=== PATIENT | female | born 1935 | race Caucasian/White ===

== ENCOUNTER 2017-02-07 08:50 | Emergency (ER) | payer OTHER, BC ==
[2017-02-07] MEDS ORDERED: ONDANSETRON *ODT* 4 MG TABLET ONE (08:59)
[2017-02-07] MEDS ORDERED: ONDANSETRON *ODT* 4 MG TABLET SL ONE (09:02)
[2017-02-07] MEDS ORDERED: SODIUM CHLORIDE 1,000 ML IV STA (09:03)
[2017-02-07 09:05] VITALS: TEMP 97.4; BMI 30.7
[2017-02-07] MEDS ORDERED: ONDANSETRON 4 MG/2 ML VIAL ONE ×2 (09:22→09:44)
--- NOTE | 2017-02-07 09:31 | PDOC ---
History of Present Illness - General Chief Complaint: Lightheaded Stated Complaint: NAUSEAU/VOMITING Time Seen by Provider: 02/07/17 08:54 History Source: Patient Exam Limitations: No Limitations - History of Present Illness Travel History: No Initial Comments: 02/07/17 09:42 82-year-old female presents to the ED with sudden onset of lightheadedness upon awakening this morning complaining that she felt dizzy without visual changes, headache, or weakness. Patient states shortly thereafter she started feeling nauseous and started to vomit. Patient also states for the past hour has had the urge to defecate and feels as if she is going to have diarrhea. Patient denies recent travel, recent illness but does state was visiting her son in the hospital here for the past week spending most of her days here and concerned with his previous roommate of his that was moved out secondary to a communicable disease. Patient states mild generalized abdominal cramping but denies fever, chills, headache chest pain, cough, shortness of breath, cheat recent change in medications, recent travel, recent illness. Patient denies urinary or bowel complaints. Timing/Duration: reports: constant Quality: reports: moderate Alleviating Factors: improves with: Vomiting Past History - Past Medical History Allergies/Adverse Reactions: Allergies Allergy/AdvReac Type Severity Reaction Status Date / Time No Known Allergies Allergy Verified 02/07/17 08:54 Home Medications: Ambulatory Orders Levothyroxine [Synthroid -] 100 mcg PO DAILY 02/06/14 Ranitidine [Zantac -] 150 mg PO DAILY 08/07/15 Aspirin [ASA -] 81 mg PO DAILY 02/07/17 Ondansetron HCl [Zofran] 4 mg PO TID PRN #12 tablet 02/07/17 Anemia: No Asthma: No Cancer: No Cardiac Disorders: No CVA: No COPD: No CHF: No Dementia: No Diabetes: No GI Disorders: Yes (GERD.) Disorders: No HTN: No Hypercholesterolemia: No Liver Disease: No Suicide Attempt (Hx): No Seizures: No Thyroid Disease: Yes (HYPO.) - Surgical History Abdominal Surgery: Yes (HERNIA.) Appendectomy: Yes Cardiac Surgery: No Cholecystectomy: Yes Lung Surgery: No Neurologic Surgery: No - Psycho/Social/Smoking Cessation Hx Anxiety: No Suicidal Ideation: No Smoking History: Never smoked Have you smoked in the past 12 months: No Hx Alcohol Use: No Drug/Substance Use Hx: No Substance Use Type: None Hx Substance Use Treatment: No Patient Lives Alone: No Abd/GI Specific PMHX - Complaint Specific PMHX GERD: Yes Review of Systems - Review of Systems Able to Perform ROS?: Yes Constitutional: Yes: Weakness HEENTM: No: Symptoms Reported Respiratory: No: Symptoms reported Cardiac (ROS): Yes: Lightheadedness. No: Chest Pain ABD/GI: Yes: Diarrhea, Nausea, Vomiting, Abdominal cramping : No: Symptoms Reported Musculoskeletal: No: Symptoms Reported Integumentary: No: Symptoms Reported Neurological: Yes: Dizziness Endocrine: No: Symptoms Reported Hematologic/Lymphatic: No: Symptoms Reported *Physical Exam - Vital Signs Last Vital Signs Temp Pulse Resp BP Pulse Ox 97.4 F L 64 18 117/75 98 02/07/17 08:55 02/07/17 08:55 02/07/17 08:55 02/07/17 08:55 02/07/17 08:55 - Physical Exam General Appearance: Yes: Nourished, Appropriately Dressed. No: Apparent Distress HEENT: positive: EOMI, MIREYA, Pharynx Normal. negative: Pale Conjunctivae Neck: positive: Normal Thyroid, Supple Respiratory/Chest: positive: Lungs Clear, Normal Breath Sounds. negative: Respiratory Distress, Accessory Muscle Use Cardiovascular: positive: Regular Rhythm, Regular Rate. negative: Murmur Gastrointestinal/Abdominal: positive: Normal Bowel Sounds, Soft. negative: Distended, Tenderness Musculoskeletal: negative: CVA Tenderness Extremity: positive: Normal Capillary Refill Integumentary: positive: Normal Color, Warm, Moist Neurologic: positive: Normal Mood/Affect, Motor Strength 5/5 Heart Score/ECG Review - History History: Slightly suspicious - Electrocardiogram EKG: Normal - Age Age: >/= 65 - Risk Factors Based on the list above the patient has:: No risk factors known - Troponin Troponin: </= normal limit - Score Heart Score - Total: 2 - ECG Intrepretation Rhythm: Regular Rhythm (Rate 65. Normal sinus rhythm. QTC 476 ms. Intervals are regular. No acute findings.) ED Treatment Course - LABORATORY CBC & Chemistry Diagram: 02/07/17 09:25 02/07/17 09:25 - RADIOLOGY Radiology Studies Ordered: Category Date Time Status CHEST X-RAY PORTABLE* [RAD] Stat Radiology 02/07/17 09:03 Ordered Medical Decision Making - Medical Decision Making 02/07/17 09:26 Patient here with complaints of nausea vomiting lightheadedness and feeling to constantly move her bowels upon awakening this morning. Patient arrives with active vomiting. Vital signs stable. Patient ordered for cardiac workup, fluids, antiemetics, and will consider disposition once results are reviewed. Patient does state has been in the hospital for the past week visiting her son and unsure if she picked up something secondary while being here. 02/07/17 11:05 Laboratory Tests 02/07/17 02/07/17 09:25 09:25 WBC 7.3 Hgb 13.5 D Hct 39.5 D Neutrophils % 68.1 Sodium 143 Potassium 3.8 Chloride 109 H Carbon Dioxide 23 Anion Gap 11 BUN 10 D Creatinine 0.9 Creat Clearance w eGFR > 60 Random Glucose 116 H D Calcium 8.9 Magnesium 2.2 D Total Bilirubin 0.5 AST 21 D ALT 22 D Alkaline Phosphatase 73 Creatine Kinase 87 Troponin I < 0.02 Total Protein 6.4 Albumin 3.4 D Lipase 128 Urine analysis pending. Patient states lightheadedness has resolved along with the nausea but states feels cold which is likely related to the IV fluids but will revitalize patient. 02/07/17 13:47 Laboratory Tests 02/07/17 13:09 Urine Ketones Negative Urine Nitrite Negative Ur Leukocyte Esterase Negative 02/07/17 13:57 Patient sitting upright and eating crackers along with apple juice. If patient can tolerate will discharge home with Zofran. 02/07/17 14:56 Patient tolerated by mouth challenge and repeat vital stable. Patient remains asymptomatic and will be discharged home with Zofran and told to rest along with small frequent sips of fluids. *DC/Admit/Observation/Transfer Diagnosis at time of Disposition: Nausea, vomiting, and diarrhea - Discharge Dispostion Disposition: HOME Condition at time of disposition: Improved - Prescriptions Prescriptions: Ondansetron HCl [Zofran] 4 mg PO TID PRN #12 tablet PRN Reason: Nausea And/Or Vomiting - Referrals Referrals: Damien Hector MD [Primary Care Provider] - - Patient Instructions Printed Discharge Instructions: DI for Viral Syndrome Additional Instructions: I recommend that you rest. Take Zofran as needed for nausea. Eat small bland food and drink frequent sips of fluids for the next 2 days.
[2017-02-07 09:38] LABS: BASOPHIL 0.7 % (0-2.0); MCH 31.6 pg (25.7-33.7); MCHC 34.2 g/dl (32.0-36.0); MEAN CELL VOLUME 92.6 fl (80-96); MEAN PLT VOLUME 7.7 fl (7.5-11.1); NEUTROPHILS 68.1 % (42.8-82.8); PLATELET COUNT 196 K/MM3 (134-434); RDW 13.8 % (11.6-15.6); WHITE BLOOD COUNT 7.3 K/mm3 (4.0-10.0)
[2017-02-07] MEDS ORDERED: MECLIZINE HCL 25 MG TABLET (FP) PO ONE (09:42)
[2017-02-07] MEDS ORDERED: ONDANSETRON 4 MG/2 ML VIAL IVPUSH ONE (09:42)
[2017-02-07] MEDS ORDERED: MECLIZINE HCL 25 MG TABLET (FP) ONE (09:44)
[2017-02-07 10:04] LABS: ALBUMIN 3.4 g/dl (3.4-5.0); ANION GAP 11 (8-16); BILIRUBIN,TOTAL 0.5 mg/dL (0.2-1.0); CALCIUM 8.9 mg/dL (8.5-10.1); CO2 23 mmol/L (21-32); CREATININE 0.9 mg/dL (0.55-1.02); GLUCOSE,RANDOM 116 mg/dL (74-106); MAGNESIUM 2.2 mg/dL (1.8-2.4); SGOT/AST 21 U/L (15-37); SGPT/ALT 22 U/L (12-78); TOT PROT 6.4 g/dl (6.4-8.2)
[2017-02-07 10:07] LABS: ALK PHOS 73 U/L (45-117); TROPONIN I < 0.02 ng/ml (0.00-0.05)
[2017-02-07 13:17] LABS: URINE APPEARANCE CLEAR; URINE BILIRUBIN NEGATIVE (NEGATIVE); URINE BLOOD NEGATIVE (NEGATIVE); URINE COLOR COLORLESS; URINE GLUCOSE (UA) NEGATIVE (NEGATIVE); URINE KETONE NEGATIVE (NEGATIVE); URINE LEUK ESTERASE NEGATIVE (NEGATIVE); URINE NITRITE NEGATIVE (NEGATIVE); URINE PROTEIN NEGATIVE (NEGATIVE); URINE UROBILINOGEN NEGATIVE E.U./dl (0.2-1.0)
--- NOTE | 2017-02-07 14:02 | PDOC ---
*Physical Exam - Vital Signs Last Vital Signs Temp Pulse Resp BP Pulse Ox 97.4 F L 58 L 16 123/68 99 02/07/17 08:55 02/07/17 11:11 02/07/17 11:11 02/07/17 11:11 02/07/17 11:11 ED Treatment Course - LABORATORY CBC & Chemistry Diagram: 02/07/17 09:25 02/07/17 09:25 - ADDITIONAL ORDERS Additional order review: Laboratory Results 02/07/17 02/07/17 13:09 09:25 Sodium 143 Potassium 3.8 Chloride 109 H Carbon Dioxide 23 Anion Gap 11 BUN 10 D Creatinine 0.9 Creat Clearance w eGFR > 60 Random Glucose 116 H D Calcium 8.9 Magnesium 2.2 D Total Bilirubin 0.5 AST 21 D ALT 22 D Alkaline Phosphatase 73 Creatine Kinase 87 Troponin I < 0.02 Total Protein 6.4 Albumin 3.4 D Lipase 128 Urine Color Colorless Urine Appearance Clear Urine pH 8.0 D Ur Specific [place] 1.006 Urine Protein Negative Urine Glucose (UA) Negative Urine Ketones Negative Urine Blood Negative Urine Nitrite Negative Urine Bilirubin Negative Urine Urobilinogen Negative Ur Leukocyte Esterase Negative 02/07/17 09:25 RBC 4.26 MCV 92.6 MCHC 34.2 RDW 13.8 MPV 7.7 D Neutrophils % 68.1 Lymphocytes % 21.1 D Monocytes % 6.1 Eosinophils % 4.0 D Basophils % 0.7 - Medications Given in the ED: ED Medications Discontinued Medications Generic Name Dose Route Start Last Admin Trade Name Freq PRN Reason Stop Dose Admin Sodium Chloride 1,000 mls @ 1,000 mls/hr 02/07/17 09:03 02/07/17 09:25 Normal Saline - IV 02/07/17 10:02 1,000 mls/hr ASDIR STA Administration Meclizine HCl 25 mg 02/07/17 09:42 02/07/17 09:48 Antivert - PO 02/07/17 09:43 25 mg ONCE ONE Administration Ondansetron HCl 4 mg 02/07/17 09:02 02/07/17 09:25 Zofran Odt - SL 02/07/17 09:03 4 mg ONCE ONE Administration Ondansetron HCl 4 mg 02/07/17 09:42 02/07/17 09:48 Zofran Injection IVPUSH 02/07/17 09:43 4 mg ONCE ONE Administration Medical Decision Making - Medical Decision Making 02/07/17 14:02 Pt seen by Midlevel Provider under my direct supervision Ancillary studies reviewed I agree with plan as outlined by Midlevel Provider *DC/Admit/Observation/Transfer Diagnosis at time of Disposition: Nausea vomiting and diarrhea - Discharge Dispostion Disposition: HOME Condition at time of disposition: Improved - Prescriptions Prescriptions: Ondansetron HCl [Zofran] 4 mg PO TID PRN #12 tablet PRN Reason: Nausea And/Or Vomiting - Referrals Referrals: Damien Hector MD [Primary Care Provider] - - Patient Instructions Printed Discharge Instructions: DI for Viral Syndrome Additional Instructions: I recommend that you rest. Take Zofran as needed for nausea. Eat small bland food and drink frequent sips of fluids for the next 2 days.
[2017-02-07 15:10] VITALS: BP 129/66; PULSE 65
--- NOTE | 2017-02-07 22:55 | EKG ---
Test Reason : Blood Pressure : / mmHG Vent. Rate : 065 BPM Atrial Rate : 065 BPM P-R Int : 150 ms QRS Dur : 086 ms QT Int : 458 ms P-R-T Axes : 048 016 028 degrees QTc Int : 476 ms NORMAL SINUS RHYTHM LOW VOLTAGE QRS BORDERLINE ECG WHEN COMPARED WITH ECG OF 07-NOV-2014 08:59, NO SIGNIFICANT CHANGE WAS FOUND Confirmed by BANDAR ANNE MD ([id number]) on 02/07/2017 10:54:45 PM Referred By: Confirmed By:BANDAR ANNE MD
== END 2017-02-07 15:51 | disposition home or self-care (01) ==
LOC: JER 08:50 → SUPCPDRO 08:50 → JER 15:51
PROC: 3E0337Z Introduction of Electrolytic and Water Balance Substance into Peripheral Vein, Percutaneous Approach (ICD-10-PCS; principal; 2017-02-07)
PROC: 3E033GC Introduction of Other Therapeutic Substance into Peripheral Vein, Percutaneous Approach (ICD-10-PCS; 2017-02-07)
DX: B34.9 Viral infection, unspecified (principal); E03.9 Hypothyroidism, unspecified; K21.9 Gastro-esophageal reflux disease without esophagitis
CPT/HCPCS: 36415; 71010-TC; 80053; 81003; 82550; 83690; 83735; 84484; 85025; 87086; 93005; 93010; 96361; 96374; 99283-25

== ENCOUNTER 2020-06-30 12:47 | Inpatient (IN) | payer OTHER, BC ==
[2020-06-30 12:54] VITALS: BMI 33.2
--- NOTE | 2020-06-30 13:06 | PDOC ---
History of Present Illness - General Chief Complaint: Nausea Stated Complaint: Nausea/Vomiting Time Seen by Provider: 06/30/20 13:06 - History of Present Illness Initial Comments: 06/30/20 13:07 Patient is a 85 y.o female with h/o DVT, hypothyroidism, uterine prolapse repair and appendectomy who BIBA from home to ER with nausea. She wasn't feeling well this yesterday stated she had a stressful day. This morning, she felt light headed, change of vision, nausea. Denies vomiting, chest pain, abdominal pain, legs swelling, SOB , dysuria, increased frequency, falling, trauma, recent sick contact, heart palpitation. EMS: put an IV on her right arm, connected with normal saline. Gave her antiemesis med. EKG: showed normal sinus rhythm at 64 vent rate. PCP is Damien Hector MD Rod Piler is Cherelle Hill MD. PMHX: as in HPI PSHX: see below Meds: synthroid, aspirin Allergies: none Tob: none Etoh: none Rec drugs: none ROS GENERAL/CONSTITUTIONAL: No fever or chills. No weakness. HEAD, EYES, EARS, NOSE AND THROAT: no change in vision. No ear pain or discharge. No sore throat. CARDIOVASCULAR: No chest pain or shortness of breath RESPIRATORY: No cough, wheezing, or hemoptysis. GASTROINTESTINAL: + nausea, no vomiting, diarrhea or constipation. GENITOURINARY: No dysuria, frequency, or change in urination. MUSCULOSKELETAL: No joint or muscle swelling or pain. No neck or back pain. SKIN: No rash NEUROLOGIC: No headache, + lightheadness, no loss of consciousness, or change in strength/sensation. ENDOCRINE: No increased thirst. No abnormal weight change HEMATOLOGIC/LYMPHATIC: No anemia, easy bleeding, or history of blood clots. ALLERGIC/IMMUNOLOGIC: No hives or skin allergy. PE GENERAL: Awake, alert, and fully oriented, in no acute distress HEAD: No signs of trauma, normocephalic, atraumatic EYES: PERRLA, EOMI, sclera anicteric, conjunctiva clear ENT: Auricles normal inspection, hearing grossly normal, nares patent, oropharynx clear without exudates. Moist mucosa NECK: Normal ROM, supple, no lymphadenopathy, JVD, or masses LUNGS: No distress, speaks full sentences, clear to auscultation bilaterally HEART: Regular rate and rhythm, normal S1 and S2, no murmurs, rubs or gallops, peripheral pulses normal and equal bilaterally. ABDOMEN: Soft, nontender, normoactive bowel sounds. No guarding, no rebound. No masses EXTREMITIES : Normal inspection, Normal range of motion, no pitting edema. No calves tenderness. NEUROLOGICAL: Cranial nerves II through XII grossly intact. Normal speech, no focal sensorimotor deficits SKIN: Warm, Dry, normal turgor, no rashes or lesions noted 06/30/20 16:52 Past History - Medical History Allergies/Adverse Reactions: Allergies Allergy/AdvReac Type Severity Reaction Status Date / Time No Known Allergies Allergy Verified 06/30/20 12:55 Home Medications: Ambulatory Orders Levothyroxine [Synthroid -] 75 mcg PO DAILY 02/06/14 Aspirin [ASA -] 81 mg PO DAILY 02/07/17 Atorvastatin Ca [Lipitor] 20 mg PO HS 06/30/20 Lansoprazole [Prevacid] 30 mg PO DAILY 06/30/20 Anemia: No Asthma: No Cancer: No Cardiac Disorders: No CVA: No COPD: No CHF: No Dementia: No Diabetes: No GI Disorders: Yes (GERD.) Disorders: No HTN: No Hypercholesterolemia: No Liver Disease: No Seizures: No Thyroid Disease: Yes (HYPO.) - Surgical History Abdominal Surgery: Yes (HERNIA.) Appendectomy: Yes Cardiac Surgery: No Cholecystectomy: Yes Lung Surgery: No Neurologic Surgery: No - Reproductive History Is Patient Now?: No - Psycho-Social/Smoking History Smoking History: Unknown if ever smoked Have you smoked in the past 12 months: No *Physical Exam - Vital Signs Last Vital Signs Temp Pulse Resp BP Pulse Ox 97.5 F L 65 16 127/84 100 06/30/20 12:51 06/30/20 12:51 06/30/20 12:51 06/30/20 12:51 06/30/20 12:51 ED Treatment Course - LABORATORY CBC & Chemistry Diagram: 06/30/20 13:57 06/30/20 13:57 Medical Decision Making - Medical Decision Making 06/30/20 16:52 Patient is a 85 y.o female with h/o DVT, hypothyroidism, uterine prolapse repair and appendectomy who BIBA from home to ER with nausea Concerning for brain bleed, stroke, infection, UTI. EKG: sinus bradcardia with sinus arrhtimia , vent rate 54, QTc 438. Med: meclizine, IV fluid 1L, Reglan Bloodwork and urine analysis are unremarkable. CT head is negative MRI scan is negative for stroke. Reassesed patient. Patient still felt lightheaded, and nauseated. Unsafe to discharge. Patient is admitted for med/surg. 06/30/20 20:33 Discharge - Discharge Information Problems reviewed: Yes Clinical Impression/Diagnosis: Dizziness Condition: Fair - Admission Yes - Follow up/Referral - Patient Discharge Instructions - Post Discharge Activity
[2020-06-30 14:10] LABS: BASO % 0.5 % (0-2.0); EOS % 1.2 % (0-4.5); HEMATOCRIT 36.7 % (32.4-45.2); HEMOGLOBIN 12.4 GM/dL (10.7-15.3); LYMPH % 11.8 % (8-40); MCH 31.3 pg (25.7-33.7); MCHC 33.7 g/dl (32.0-36.0); MEAN CELL VOLUME 92.8 fl (80-96); MEAN PLT VOLUME 7.9 fl (7.5-11.1); MONO % 4.8 % (3.8-10.2); NEUT % 81.7 % (42.8-82.8); PLATELET COUNT 185 K/MM3 (134-434); RBC 3.95 M/mm3 (3.60-5.2); RDW 14.1 % (11.6-15.6); WHITE BLOOD COUNT 7.8 K/mm3 (4.0-10.0)
[2020-06-30] MEDS ORDERED: MECLIZINE HCL 25 MG TABLET (FP) PO ONE (14:42)
[2020-06-30] MEDS ORDERED: METOCLOPRAMIDE HCL INJECTION 10 MG/2 ML VIAL IVPUSH ONE (14:42)
[2020-06-30 14:48] LABS: ALBUMIN 3.5 g/dl (3.4-5.0); ALK PHOS 69 U/L (45-117); ANION GAP 6 MMOL/L (8-16); BILIRUBIN,TOTAL 0.9 mg/dL (0.2-1); BLOOD UREA NITROGEN 11.9 mg/dL (7-18); CALCIUM 8.3 mg/dL (8.5-10.1); CHLORIDE 110 mmol/L (98-107); CO2 23 mmol/L (21-32); CREATININE 0.8 mg/dL (0.55-1.3); GLUCOSE,RANDOM 98 mg/dL (74-106); SGOT/AST 19 U/L (15-37); SGPT/ALT 16 U/L (13-61); SODIUM 140 mmol/L (136-145); TOT PROT 6.1 g/dl (6.4-8.2)
[2020-06-30] MEDS ORDERED: METOCLOPRAMIDE HCL INJECTION 10 MG/2 ML VIAL ONE (14:54)
[2020-06-30] MEDS ORDERED: MECLIZINE HCL 25 MG TABLET (FP) ONE (14:54)
--- NOTE | 2020-06-30 15:15 | PDOC ---
Attending Attestation - Resident Resident Name: Domingo Hudson - ED Attending Attestation I have performed the following: I have examined & evaluated the patient, The case was reviewed & discussed with the resident, I agree w/resident's findings & plan - HPI HPI: 06/30/20 15:10 85y/o female with history of DVT on aspirin presents with dizziness that began this morning. Patient was in her usual state of good health, very high functioning, went to bed last night with some nonspecific complaints of generalized weakness, otherwise slept well during the night and made breakfast this morning but then developed sudden onset of dizziness/vertigo with nausea while seated in chair. She had difficulty ambulating with the symptoms, but had had no focal weakness or speech deficit or headache. Symptoms persisted intermittently since 9:30 AM, EMS was activated, presents for evaluation. Reports symptoms are exacerbated now with positional changes such as sitting or standing, otherwise denies any history of vertigo. - Physicial Exam PE: 06/30/20 15:13 Vital signs stable Alert lying comfortably in stretcher speaking full sentences in no acute distress Heart is regular, lungs are clear Abdomen benign Neurological exam is nonfocal including rapid alternating movements and [id number] - Medical Decision Making 06/30/20 15:14 85-year-old female with abrupt onset of dizziness/vertigo since this morning, now positional but constant. Presentation concerning for central versus peripheral vertigo, intractable. Hemodynamically stable, lower suspicion for arrhythmia or ACS or acute infectious process. Check labs, urinalysis EKG, chest x-ray CT head, attempt to obtain abbreviated MRI to rule out cerebellar CVA Trial of meclizine and Reglan and IV fluids Reassess and disposition accordingly Heart Score/ECG Review #1 ECG reviewed & interpreted by me at: 13:58 General ECG Interpretation: Sinus Rhythm, Normal Rate (54), Normal Intervals (qtc 438), No acute ischemic changes NIH Stroke Scale - Last Known Well Date/Time & Onset Date Last Known Well: 06/30/20 Time Last Known Well: 09:30 - Initial Evaluation Level of consciousness: Alert Ask patient the month and their age: Answers both correctly Ask patient to open & close eyes; make fist and let go: Obeys both correctly Best gaze (horizontal eye movement): Normal Visual field testing: No visual field loss Facial paresis (Show teeth/raise eyebrows/close eyes tight): Normal symmetrical movement Motor Function: Left Arm: Normal Motor Function: Right Arm: Normal (extends arm 90 (or 45) degrees for 10 seconds without drift Motor Function: Left Leg: Normal (extends leg 30 degrees for 5 seconds without drift) Motor Function: Right Leg: Normal (extends leg 30 degrees for 5 seconds without drift) Limb Ataxia: No ataxia Sensory(Use pinprick test arms,legs,trunk,face/side to side): Normal Best language (Describe picture, name items, read sentences): No Aphasia Dysarthria (read several words): Normal articulation Extinction and Inattention: No abnormality - Total Score NIH Stroke Scale Score: 0 Discharge - Discharge Information Problems reviewed: Yes Clinical Impression/Diagnosis: Dizziness Condition: Fair - Follow up/Referral - Patient Discharge Instructions - Post Discharge Activity
[2020-06-30 15:22] LABS: PH,URINE 7.5 (5.0-8.0); URINE APPEARANCE CLEAR; URINE BILIRUBIN NEGATIVE (NEGATIVE); URINE COLOR YELLOW; URINE GLUCOSE (UA) NEGATIVE (NEGATIVE); URINE KETONE TRACE (NEGATIVE); URINE LEUK ESTERASE NEGATIVE (NEGATIVE); URINE NITRITE NEGATIVE (NEGATIVE); URINE PROTEIN NEGATIVE (NEGATIVE)
--- OUTSIDE RECORDS SUMMARY | 2020-06-30 16:48 | XMS ---
:1935 [facility] Organization [facility] Support Name Relationship Address Phone RE Unavailable Unavailable Unavailable RE Unavailable Unavailable Unavailable MARGARET HARPER DAUGHTER [address] [phone] [place] [address] Re-disclosure Warning The records that you are about to access may contain information from federally- assisted alcohol or drug abuse programs. If such information is present, then the following federally mandated warning applies: This information has been disclosed to you from records protected by federal confidentiality rules (42 CFR part 2). The federal rules prohibit you from making any further disclosure of this information unless further disclosure is expressly permitted by the written consent of the person to whom it pertains or as otherwise permitted by 42 CFR part 2. A general authorization for the release of medical or other information is NOT sufficient for this purpose. The Federal rules restrict any use of the information to criminally investigate or prosecute any alcohol or drug abuse patient.The records that you are about to access may contain highly sensitive health information, the redisclosure of which is protected by Article 27-F of the [facility] Public Health law. If you continue you may haveaccess to information: Regarding HIV / AIDS; Provided by facilities licensed or operated by the [facility] Office of Mental Health; or Provided by the [facility] Office for People With Developmental Disabilities. If such information is present, then the following [facility] mandated warning applies: This information has been disclosed to you from confidential records which are protected by state law. State law prohibits you from making any further disclosure of this information without the specific written consent of the person to whom it pertains, or as otherwise permitted by law. Any unauthorized further disclosure in violation of state law may result in a fine or nursing home sentence or both. A general authorization for the release of medical or other information is NOT sufficient authorization for further disclosure. Insurance Providers Payer name Policy type Policy ID Covered Covered republican's Policy P randolph / Coverage republican ID relationship to [employer] type rober[employer] BC PPO [id number] SP [id number] MEDICARE [id number] SP [id number] BC PPO [id number] SP [id number] MEDICARE [id number] SP [id number] A
[2020-06-30] MEDS ORDERED: ONDANSETRON 4 MG/2 ML VIAL IVPUSH PRN (18:43)
--- OUTSIDE RECORDS SUMMARY | 2020-06-30 18:49 | XMS ---
:1935 [facility] Support Name Relationship Address Phone RE, RETIRED Unavailable Unavailable Unavailable RE Unavailable Unavailable Unavailable TRUDY HARPER DAUGHTER [address] [phone] [place] [address] Re-disclosure Warning The records that you are [...] is protected by Article 27-F of the [facility] Public Health law. If you continue you may haveaccess to information: Regarding HIV / AIDS; Provided by facilities licensed or operated by the [facility] Office of Mental Health; or Provided by the [facility] Office for People With Developmental Disabilities. If such information is present, then the following [facility] mandated warning applies: This information has been [...] law may result in a fine or [facility] sentence or both. A general authorization for the release of medical or other information is NOT sufficient authorization for further disclosure. Insurance Providers Payer name Policy type Policy ID Covered Covered green party's Policy P randolph / Coverage green party ID relationship to [employer] type [employer] BC PPO [id number] SP [id number] MEDICARE [id number] SP [id number] BC PPO [id number] SP [id number] MEDICARE [id number] SP [id number] A
--- NOTE | 2020-06-30 19:04 | HP ---
CHIEF COMPLAINT: chills, nausea. lightheadedness/dizziness PCP:Dr. Hector HISTORY OF PRESENT ILLNESS: 85 year old female with a past medical history of prior DVT, hypothyroidism, uterine prolapse repair and appendectomy who was BIBA from home to ER with symptoms of nausea and chills. She reported she was not feeling well since yesterday and she stated she had a stressful day. This morning she reported feeling lightheaded having changes in vision and nausea. She denied syncopy, chest pain, vomiting, chest pain, abdominal pain, leg swelling, SOB, dysuria, falling,trauma, recent sick contacts, or COVID exposure. ER course was notable for normal lab findings-normal troponin,TSH, electrolyes, renal studies and UA. CT scan of head unremarkable. EKG- normal sinus rhythm, no signs of ischemia. Vital signs normal, afebrile, no hypoxia. She received a trial of ,meclizine, zofran and IVF. Recent Travel: no PAST MEDICAL HISTORY: hypothyroidism PAST SURGICAL HISTORY: uterine prolapse repair appendectomy cholecystectomy Social History: Smoking:no Alcohol:no Drugs: no Allergies No Known Allergies Allergy (Verified 06/30/20 12:55) HOME MEDICATIONS: Home Medications Medication Instructions Recorded Levothyroxine [Synthroid -] 100 mcg PO DAILY 02/06/14 Ranitidine [Zantac -] 150 mg PO DAILY 08/07/15 Aspirin [ASA -] 81 mg PO DAILY 02/07/17 Ondansetron HCl [Zofran] 4 mg PO TID PRN #12 tablet 02/07/17 REVIEW OF SYSTEMS CONSTITUTIONAL: Absent: fever, chills, diaphoresis, generalized weakness, malaise, loss of appetite, weight change HEENT: Absent: rhinorrhea, nasal congestion, throat pain, throat swelling, difficulty swallowing, mouth swelling, ear pain, eye pain, visual changes CARDIOVASCULAR: Absent: chest pain, syncope, palpitations, irregular heart rate, lightheadedness , peripheral edema RESPIRATORY: Absent: cough, shortness of breath, dyspnea with exertion, orthopnea, wheezing, stridor, hemoptysis GASTROINTESTINAL: Absent: abdominal pain, abdominal distension, nausea, vomiting, diarrhea, constipation, melena, hematochezia GENITOURINARY: Absent: dysuria, frequency, urgency, hesitancy, hematuria, flank pain, genital pain MUSCULOSKELETAL: Absent: myalgia, arthralgia, joint swelling, back pain, neck pain SKIN: Absent: rash, itching, pallor HEMATOLOGIC/IMMUNOLOGIC: Absent: easy bleeding, easy bruising, lymphadenopathy, frequent infections ENDOCRINE: Absent: unexplained weight gain, unexplained weight loss, heat intolerance, cold intolerance NEUROLOGIC: Absent: headache, focal weakness or paresthesias, dizziness, unsteady gait, s eizure, mental status changes, bladder or bowel incontinence PSYCHIATRIC: Absent: anxiety, depression, suicidal or homicidal ideation, hallucinations. PHYSICAL EXAMINATION Vital Signs - 24 hr 06/30/20 12:51 Temperature 97.5 F L Pulse Rate 65 Respiratory 16 Rate Blood Pressure 127/84 O2 Sat by Pulse 100 Oximetry (%) General no acute distress Vital signs reviewed afebrile Neuro no focal deficits Neck no JVD Lungs clear to auscultation nonlabored breathing effort no rales no wheezing Heart s1s2 rate regular no murmurs appreciated Abdomen soft nontender nondistended Extremities warm to touch minimal lower extremity leg swelling Skin nail beds and lips pink Mood calm Laboratory Results - last 24 hr 06/30/20 06/30/20 06/30/20 13:57 13:57 14:52 WBC 7.8 RBC 3.95 Hgb 12.4 Hct 36.7 MCV 92.8 MCH 31.3 MCHC 33.7 RDW 14.1 Plt Count 185 MPV 7.9 Absolute Neuts (auto) 6.4 Neutrophils % 81.7 Lymphocytes % 11.8 D Monocytes % 4.8 Eosinophils % 1.2 Basophils % 0.5 Nucleated RBC % 0 Sodium 140 Potassium 4.0 Chloride 110 H Carbon Dioxide 23 Anion Gap 6 L BUN 11.9 Creatinine 0.8 Est GFR (CKD-EPI)AfAm 79.02 Est GFR (CKD-EPI)NonAf 68.18 Random Glucose 98 Calcium 8.3 L Total Bilirubin 0.9 AST 19 ALT 16 Alkaline Phosphatase 69 Total Protein 6.1 L Albumin 3.5 TSH 1.69 Free T4 1.23 Urine Color Yellow Urine Appearance Clear Urine pH 7.5 Ur Specific [place] 1.016 Urine Protein Negative Urine Glucose (UA) Negative Urine Ketones Trace H Urine Blood Negative Urine Nitrite Negative Urine Bilirubin Negative Urine Urobilinogen 1.0 Ur Leukocyte Esterase Negative ASSESSMENT/PLAN: In summary this is an 85 year old female with a past medical history of DVT, hypothyroidism, uterine prolapse repair and appendectomy who presented with symptoms of nausea, chills, lightheadedness, and change in vision. She was found to have normal lab findings, UA and EKG. CT scan of head was unremarkable. She is being admitted for IV hydration and further medical evaluation. #1 nausea electrolytes normal currently asymptomatic c/w with zofran prn IVF LR @ 75cc/hr #2 dizziness troponin normal check orthostatic vital signs check carotid doppler monitor on telemetry for significant ectopy #3 rule out COVID + chills, currently afebrile, no hypoxia follow up on COVID test maintain oxygen saturation >90% maintain strict isolation precautions for contact and droplet #4 hypothyroidism thyroid panel normal c/w synthroid FEN IVF LR@ 75cc/hr BMP daily and replete as needed clear liquids DVT Prophylaxis lovenox 40 mg daily Family Medical History Family History: Denies Visit type - Medication Review Med list reviewed for High Risk Meds patients 65 and older: Yes - Emergency Visit Emergency Visit: Yes ED Registration Date: 06/30/20 Care time: The patient presented to the Emergency Department on the above date and was hospitalized for further evaluation of their emergent condition. - New Patient This patient is new to me today: Yes Date on this admission: 06/30/20 - Critical Care Critical Care patient: No
[2020-06-30] MEDS: LACTATED RINGERS SOLUTION 1,000 ML IV SCH (19:05)
[2020-06-30] MEDS ORDERED: ENOXAPARIN NA (PORCINE) 40 MG/0.4 ML DISP.SYRIN SQ ONE (21:09)
[2020-06-30] MEDS: ENOXAPARIN NA (PORCINE) 40 MG/0.4 ML DISP.SYRIN SQ SCH (21:21)
[2020-07-01 06:22] VITALS: TEMP 98.9
[2020-07-01 06:44] LABS: HEMOGLOBIN 12.3 GM/dL (10.7-15.3); MCH 32.7 pg (25.7-33.7); MCHC 35.1 g/dl (32.0-36.0); MEAN CELL VOLUME 93.1 fl (80-96); MEAN PLT VOLUME 7.9 fl (7.5-11.1); PLATELET COUNT 172 K/MM3 (134-434); RBC 3.76 M/mm3 (3.60-5.2); WHITE BLOOD COUNT 6.2 K/mm3 (4.0-10.0)
[2020-07-01] MEDS ORDERED: LEVOTHYROXINE NA 100 MCG TABLET (FP) PO SCH (07:00)
[2020-07-01 07:02] LABS: BLOOD UREA NITROGEN 8.7 mg/dL (7-18); CALCIUM 8.3 mg/dL (8.5-10.1); CREATININE 0.8 mg/dL (0.55-1.3); MAGNESIUM 2.1 mg/dL (1.8-2.4)
[2020-07-01] MEDS ORDERED: LEVOTHYROXINE NA 25 MCG TABLET (FP) ONE (07:34)
[2020-07-01] MEDS ORDERED: ENOXAPARIN NA (PORCINE) 40 MG/0.4 ML DISP.SYRIN SQ ONE (07:39)
[2020-07-01] MEDS ORDERED: ASPIRIN 81 MG CHEWABLE TABLETS ONE (07:39)
[2020-07-01] MEDS ORDERED: FAMOTIDINE 20 MG TABLET ONE (07:39)
[2020-07-01] MEDS: LACTATED RINGERS SOLUTION 1,000 ML IV SCH (07:59)
--- NOTE | 2020-07-01 08:45 | PN ---
Progress Note, Physician - Current Medication List Current Medications: Active Medications Aspirin (Asa -) 81 mg PO DAILY [facility] Enoxaparin Sodium (Lovenox -) 40 mg SQ DAILY [facility] Last Admin: 06/30/20 21:21 Dose: 40 mg Documented by: Famotidine (Pepcid -) 20 mg PO DAILY [facility] Lactated Ringer's (Lactated Ringers Solution) 1,000 mls @ 75 mls/hr IV ASDIR [facility] Last Admin: 07/01/20 07:59 Dose: 75 mls/hr Documented by: Levothyroxine Sodium (Synthroid -) 100 mcg PO DAILY@0700 [facility] Last Admin: 07/01/20 07:59 Dose: 75 mcg Documented by: Ondansetron HCl (Zofran Injection) 4 mg IVPUSH Q6H PRN PRN Reason: NAUSEA AND/OR VOMITING - Objective Vital Signs: Vital Signs Temperature 98.9 F 07/01/20 06:21 Pulse Rate 57 L 07/01/20 06:21 Respiratory Rate 17 07/01/20 06:21 Blood Pressure 127/55 L 07/01/20 06:21 O2 Sat by Pulse Oximetry (%) 97 07/01/20 06:21 Cardiovascular: Yes: Regular Rate and Rhythm Respiratory: Yes: Regular, CTA Bilaterally Gastrointestinal: Yes: Normal Bowel Sounds, Soft Edema: No Neurological: Yes: Alert, Oriented, Cran Nerves II-XII Intact. No: Facial Droop Labs: CBC, BMP 07/01/20 06:05 07/01/20 06:05 Problem List - Problems (1) Dizziness Assessment/Plan: improved on ivf may have been bpv vs orthostatic oob with pt and observe Code(s): R42 - DIZZINESS AND GIDDINESS (2) HTN (hypertension) Assessment/Plan: Selected Entries not on any meds 07/01/20 07/01/20 06:21 09:00 Blood Pressure 127/55 L 103/61 [Left Arm] Code(s): I10 - ESSENTIAL (PRIMARY) HYPERTENSION Qualifiers: Hypertension type: essential hypertension Qualified Code(s): I10 - Essential (primary) hypertension (3) Hypothyroid Code(s): E03.9 - HYPOTHYROIDISM, UNSPECIFIED
[2020-07-01] MEDS: ENOXAPARIN NA (PORCINE) 40 MG/0.4 ML DISP.SYRIN SQ SCH (09:08)
[2020-07-01] MEDS ORDERED: FAMOTIDINE 20 MG TABLET PO SCH (10:00)
[2020-07-01] MEDS ORDERED: PATIENT'S OWN MEDICATION (NON-FORMULARY) (Ranitidine [Zantac -] 150 MG) PO SCH (10:00)
[2020-07-01] MEDS ORDERED: ASPIRIN 81 MG CHEWABLE TABLETS PO SCH (10:00)
--- NOTE | 2020-07-01 10:03 | EKG ---
Test Reason : Blood Pressure : / mmHG Vent. Rate : 054 BPM Atrial Rate : 054 BPM P-R Int : 154 ms QRS Dur : 082 ms QT Int : 462 ms P-R-T Axes : 032 -14 009 degrees QTc Int : 438 ms SINUS BRADYCARDIA WITH SINUS ARRHYTHMIA INFERIOR INFARCT , AGE UNDETERMINED POSSIBLE ANTERIOR INFARCT , AGE UNDETERMINED ABNORMAL ECG WHEN COMPARED WITH ECG OF 07-FEB-2017 09:00, NO SIGNIFICANT CHANGE WAS FOUND Confirmed by Guicho Salgado ([id number]) on 07/01/2020 10:02:41 AM Referred By: Confirmed By:Guicho Salgado
--- NOTE | 2020-07-01 11:31 | CON.CARD ---
Consult Consult Specialty:: cardiology - History of Present Illness Chief Complaint: dizziness, nausea and vertigo History of Present Illness: 85 year old female with a past medical history of prior DVT, hypothyroidism, came to ER with lightheadness and vertigo with dry heaving. No syncope, dyspnea or chest pain. No prior cardiac history. Feelings have currently resolved. ECG normal. - Past Medical History Cardio/Vascular: Yes: Deep Vein Thrombosis Gastrointestinal: Yes: Pancreatitis Hepatobiliary: Yes: Cholelithiasis, Cholecystitis ...: No Endocrine: Yes: Hypothyroidism - Past Surgical History Past Surgical History: Yes: Appendectomy - Alcohol/Substance Use Hx Alcohol Use: No - Smoking History Smoking history: Unknown if ever smoked Have you smoked in the past 12 months: No - Social History ADL: Independent Home Medications - Allergies Allergies/Adverse Reactions: Allergies Allergy/AdvReac Type Severity Reaction Status Date / Time No Known Allergies Allergy Verified 06/30/20 12:55 - Home Medications Home Medications: Ambulatory Orders Levothyroxine [Synthroid -] 75 mcg PO DAILY 02/06/14 Aspirin [ASA -] 81 mg PO DAILY 02/07/17 Atorvastatin Ca [Lipitor] 20 mg PO HS 06/30/20 Lansoprazole [Prevacid] 30 mg PO DAILY 06/30/20 Review of Systems - Review of Systems Constitutional: reports: No Symptoms Eyes: reports: No Symptoms HENT: reports: No Symptoms Neck: reports: No Symptoms Cardiovascular: reports: No Symptoms. denies: Chest Pain, Palpitations, Shortness of Breath Respiratory: denies: Cough, Exercise Intolerance, PND, SOB Gastrointestinal: reports: Nausea, Vomiting. denies: Abdominal Pain, Diarrhea, Melena, Rectal Bleeding Genitourinary: reports: No Symptoms Breasts: reports: No Symptoms Reported Vital Signs: Vital Signs Temperature 98.9 F 07/01/20 06:21 Pulse Rate 56 L 07/01/20 09:00 Respiratory Rate 18 07/01/20 09:00 Blood Pressure 103/61 07/01/20 09:00 O2 Sat by Pulse Oximetry (%) 96 07/01/20 09:00 Constitutional: Yes: Well Nourished, No Distress Eyes: Yes: Conjunctiva Clear, EOM Intact HENT: Yes: Atraumatic, Normocephalic Neck: Yes: Supple, Trachea Midline Respiratory: Yes: Regular, CTA Bilaterally Gastrointestinal: Yes: Normal Bowel Sounds, Soft JVD: No Carotid Bruit: No PMI: Non-Displaced Heart Sounds: Yes: S1, S2 Murmur: No: Systolic Murmur, Diastolic Murmur Musculoskeletal: Yes: WNL Extremities: Yes: WNL Edema: No - Other Data Labs, Other Data: CBC, BMP 07/01/20 06:05 07/01/20 06:05 Troponin, BNP 06/30/20 13:57 Troponin I < 0.02 Troponin, BNP 06/30/20 13:57 Troponin I < 0.[address] t changes. Imaging - Results Chest X-ray: Report Reviewed Cat Scan: Report Reviewed MRI: Report Reviewed Problem List - Problems (1) Dizziness Code(s): R42 - DIZZINESS AND GIDDINESS Assessment/Plan Patient with nausea and dry heaving with sensation of dizziness and vertigo. ECG is normal No signs of myocardial injury TP is negative. No heart failure Symptoms may be due to vertigo. Will see as needed.
[2020-07-01 16:44] VITALS: BP 112/61; PULSE 20
== END 2020-07-01 15:50 | disposition home or self-care (01) | DRG 149 ==
LOC: JER 12:47 → JERBED 17:56
PROVIDERS: ADMIT Family Medicine; ATTEND Family Medicine
DX: R42 Dizziness and giddiness (principal); E03.9 Hypothyroidism, unspecified; Z86.718 Personal history of other venous thrombosis and embolism; K21.9 Gastro-esophageal reflux disease without esophagitis; I10 Essential (primary) hypertension
CPT/HCPCS: 36415; 70450-TC; 70551-TC; 71045-TC-FY; 80048; 80053; 81003; 82550; 83735; 84439; 84443; 84484; 85025; 85027; 87086; 93005; 93010; 93880-TC; 97116-GP; 97161-GP; 99285-25; U0003

== ENCOUNTER 2024-02-10 12:07 | Day surgery (SDC) | payer OTHER, BC ==
[2024-02-10] MEDS: FERRIC CARBOXYMALTOSE 750 MG in SODIUM CHLORIDE 250 ML IVPB SCH (12:42)
[2024-02-10 14:18] VITALS: PULSE 72; RESP 16; TEMP 98
[2024-02-10 14:20] VITALS: BP 112/68
== END 2024-02-10 14:28 | disposition home or self-care (01) ==
LOC: FINFUSION 12:07 → FM/S 12:08 → FINFUSION 14:28
PROVIDERS: ATTEND Family Medicine
PROC: 3E033GC Introduction of Other Therapeutic Substance into Peripheral Vein, Percutaneous Approach (ICD-10-PCS; principal; 2024-02-10)
DX: D50.9 Iron deficiency anemia, unspecified (principal)
CPT/HCPCS: 96365; J1439

== ENCOUNTER 2024-02-17 10:54 | Day surgery (SDC) | payer OTHER, BC ==
[2024-02-17] MEDS: FERRIC CARBOXYMALTOSE 750 MG in SODIUM CHLORIDE 250 ML IVPB SCH (11:41)
[2024-02-17 13:14] VITALS: BP 129/67; PULSE 65; RESP 15; TEMP 97.9
== END 2024-02-17 13:09 | disposition home or self-care (01) ==
LOC: FINFUSION 10:54 → FM/S 10:56 → FINFUSION 13:09
PROVIDERS: ATTEND Family Medicine
PROC: 3E033GC Introduction of Other Therapeutic Substance into Peripheral Vein, Percutaneous Approach (ICD-10-PCS; principal; 2024-02-17)
DX: D50.9 Iron deficiency anemia, unspecified (principal)
CPT/HCPCS: 96365; J1439